=== PATIENT | male | born 1950 | race Caucasian/White ===

== ENCOUNTER → 2017-02-13 | Outpatient (CLI) | payer MEDICARE, OTHER ==
[~2017-02-13] MED LIST: ATORVASTATIN CA20 MG PO; CLOPIDOGREL75 MG PO; COREG 12.5 MG12.5 MG PO; HYDROCHLOROTH12.5 M1 PO; LOSARTAN POTAS100 MG PO; MECLIZINE25 MG PO; NIACIN ER1000 MG PO; OMEGA-31000 M2 PO; PREDNISONE 20MG20 MG PO; VALIUM5 MG PO
== END ==
LOC: LAB 10:48
DX: C61 Malignant neoplasm of prostate (principal); Z12.5 Encounter for screening for malignant neoplasm of prostate
CPT/HCPCS: G0103